=== PATIENT | male | born 2000 | race Caucasian/White ===

== ENCOUNTER 2022-11-11 15:43 | Emergency (ER) | payer OTHER ==
[~2022-11-11] VITALS: Ht 175.3 cm; Wt 70.3 kg
[2022-11-11 15:45] VITALS: BP 110/60
--- NOTE | 2022-11-11 15:51 | NUR ---
PT BIBA TO BED 10
--- NOTE | 2022-11-11 15:52 | NUR ---
PT MOVED/AMBULATED TO BED 5
[2022-11-11 16:28] VITALS: BP 110/60
--- NOTE | 2022-11-11 16:29 | NUR ---
Patient discharged with v/s stable. Written and verbal after care instructions given and explained. Patient verbalized understanding. Ambulatory with steady gait. All questions addressed prior to discharge. Advised to follow up with PMD.
== END 2022-11-11 16:28 | disposition home or self-care (01) ==
LOC: MED 15:43
DX: S09.90XA Unspecified injury of head, initial encounter (principal); X58.XXXA Exposure to other specified factors, initial encounter; Y93.89 Activity, other specified; Y92.89 Other specified places as the place of occurrence of the external cause; Y99.8 Other external cause status
CPT/HCPCS: 99283